=== PATIENT | male | born 1985 | race Caucasian/White ===

== ENCOUNTER 2021-07-22 20:40 | Emergency (ER) | payer OTHER ==
[~2021-07-22] VITALS: Ht 188 cm; Wt 102.1 kg
== END 2021-07-22 22:50 | disposition home or self-care (01) ==
LOC: ER 20:40
DX: S81.012A Laceration without foreign body, left knee, initial encounter (principal); W31.89XA Contact with other specified machinery, initial encounter; Z23 Encounter for immunization
CPT/HCPCS: 12002; 90471; 99283-25